=== PATIENT | male | born 1985 | race African-American/Black ===

== ENCOUNTER → 2020-07-29 | Outpatient (CLI) | payer BC ==
[2020-07-29 09:43] LABS: BASOPHILS % (AUTO) 0 % (0-10); EOSINOPHILS % (AUTO) 0 % (0-10); HEMATOCRIT 52 % (40-54); HEMOGLOBIN 18.2 G/DL (13.3-17.7); LYMPHOCYTES % (AUTO) 27 % (12-44); MEAN CORPUSCULAR HEMOGLOBIN 28 PG (25-34); MEAN CORPUSCULAR HGB CONC 28 G/DL (32-36); MEAN CORPUSCULAR VOLUME 79 FL (80-99); MEAN PLATELET VOLUME 9.3 FL (7.4-10.4); MONOCYTES % (AUTO) 12 % (0-12); NEUTROPHILS % (AUTO) 61 % (42-75); PLATELET COUNT 317 10^3/uL (130-400); WHITE BLOOD COUNT 10.3 10^3/uL (4.3-11.0)
[2020-07-29 09:44] LABS: LYMPHOCYTES # (AUTO) 2.8 X 10^3 (1.0-4.0); MONOCYTES # (AUTO) 1.2 X 10^3 (0.0-1.0); NEUTROPHILS # (AUTO) 6.2 X 10^3 (1.8-7.8)
[2020-07-29 09:58] LABS: ALANINE AMINOTRANSFERASE 16 U/L (0-55); ALKALINE PHOSPHATASE 119 U/L (40-136); AMYLASE 88 U/L (25-125); BILIRUBIN,TOTAL 0.8 MG/DL (0.1-1.0); BUN/CREATININE RATIO 22; CALCIUM 10.1 MG/DL (8.5-10.1); CARBON DIOXIDE 24 MMOL/L (21-32); CHLORIDE 91 MMOL/L (98-107); CREATININE SERUM 1.28 MG/DL (0.60-1.30); GFR ESTIMATED > 60; GLUCOSE 123 MG/DL (70-105); LIPASE 37 U/L (8-78); MAGNESIUM 2.3 MG/DL (1.6-2.4); POTASSIUM 3.3 MMOL/L (3.6-5.0); SODIUM 132 MMOL/L (135-145); TOTAL PROTEIN 9.3 GM/DL (6.4-8.2)
--- NOTE | 2020-07-29 10:10 | Diagnostic Imaging Report ---
Indication: Left lower quadrant abdominal pain Lung bases are clear. Bowel gas pattern is normal. There are no pathologic masses or calcifications. IMPRESSION: No acute abnormalities in the abdomen. Dictated by: Dictated on workstation # [id number]
== END ==
LOC: LAB FS 09:20
PROVIDERS: ATTEND Nurse Practitioner Family
DX: K59.00 Constipation, unspecified (principal); R10.32 Left lower quadrant pain; R11.2 Nausea with vomiting, unspecified; Z87.19 Personal history of other diseases of the digestive system
CPT/HCPCS: 36415; 74018; 80053; 82150; 83690; 83735; 85025

== ENCOUNTER 2021-04-19 13:25 | Emergency (ER) | payer BC ==
[~2021-04-19] VITALS: Ht 185 cm; Wt 72.0 kg
[2021-04-19] MEDS ORDERED: NS IV 1000 ML 1,000 ML IV STA ×3 (13:57→14:46)
[2021-04-19] MEDS ORDERED: ONDANSETRON 4 MG/2 ML (SDV) Z0FRAN IVP STA (13:57)
[2021-04-19 13:58] VITALS: BP 147/103
--- NOTE | 2021-04-19 14:03 | ED General ---
General Chief Complaint: Abdominal/GI Problems Stated Complaint: THROWING UP,DEHYDRATED Source of Information: Patient, Spouse History of Present Illness Date Seen by Provider: Apr 19, 2021 Time Seen by Provider: 13:35 Initial Comments 36-year-old male presenting with complaints of vomiting for the last 4 days and feeling dehydrated with muscle cramps. He has had multiple recurrent episodes of this in the past. He has seen specialist to try to work-up why he has recurrent episodes of vomiting and dehydration. He had EGD with biopsies on the . He has been sick and having issues since the . He previously had been able to go to the [facility] where they gave him IV fluids but today they said they did not have staff her room to be able to do that. He was feeling dizzy and lightheaded when he stands up. He denies fever or chills. He has had some loose stools. He denies any pain or burning with urination but has had decreased urine output. Timing/Duration: 4-5 Days Severity: Severe Modifying Factors: worse with Eating Associated Systoms: No Chest Pain; Cough (Mild intermittent); No Diaphoresis, No Fever/Chills, No Headaches; Loss of Appetite, Malaise, Nausea/Vomiting; No Rash, No Seizure, No Shortness of Air, No Syncope; Weakness (Generalized) Allergies and Home Medications Allergies Coded Allergies: No Known Drug Allergies (Unverified , 04/19/21) Patient Home Medication List Home Medication List Reviewed: Yes Review of Systems Review of Systems Constitutional: see HPI EENTM: no symptoms reported Respiratory: no symptoms reported Cardiovascular: no symptoms reported Gastrointestinal: see HPI, abdominal pain (Diffuse abdominal wall pain from vomiting for the last 4 days), diarrhea (Some loose stools), nausea, vomiting Genitourinary: decreased output; No dysuria Musculoskeletal: muscle pain (Generalized muscle cramps and body aches), muscle cramps (Generalized) Skin: No rash Psychiatric/Neurological: Weakness (Generalized) Past Bhczjxz-Wrqubj-Ufwixo Hx Patient Social History Tobacco Use?: Yes Tobacco type used: Cigarettes Smoking Status: Current Everyday Smoker Use of E-Cig and/or Vaping dev: No Substance use?: No Alcohol Use?: Yes Alcohol Frequency: Once in a while Past Medical History Surgery/Hospitalization HX: Recurrent episodes of nausea and vomiting Respiratory: No Cardiac: No Neurological: No Genitourinary: No Gastrointestinal: Yes (Recurrent episodes of nausea and vomiting) Musculoskeletal: No Endocrine: No HEENT: No Physical Exam Vital Signs Vital Signs - First Documented 04/19/21 13:58 Temp 36.8 Pulse 101 Resp 18 B/P (MAP) 147/103 (118) O2 Delivery Room Air Capillary Refill : Height, Weight, BMI Height: '" Weight: lbs. oz. kg; BMI Method: General Appearance: Mild Distress, Thin HEENT: PERRL/EOMI; No Moist Mucous Membranes (Slightly dry mucous membranes) Neck: Full Range of Motion, Normal Inspection, Non Tender, Supple Respiratory: Lungs Clear, Normal Breath Sounds, No Accessory Muscle Use, No Respiratory Distress Cardiovascular: Normal Peripheral Pulses, Tachycardia Gastrointestinal: Normal Bowel Sounds, No Pulsatile Mass, Soft, Tenderness (Diffuse mild tenderness to palpation) Rectal: Deferred Extremity: Normal Capillary Refill, No Pedal Edema, Other (Diffuse muscle cramping and pain) Neurologic/Psychiatric: Alert, Oriented x3, No Motor/Sensory Deficits, Normal Mood/Affect, blood tester fowl II-XII Norm as Tested Skin: Normal Color, Warm/Dry Progress/Results/Core Measures Suspected Sepsis SIRS Temperature: Pulse: Respiratory Rate: Laboratory Tests 04/19/21 14:18: White Blood Count 9.3 Blood Pressure / Mean: Laboratory Tests 04/19/21 14:18: Creatinine 1.43H, Platelet Count 325, Total Bilirubin 0.7 Results/Orders Lab Results Laboratory Tests Test 04/19/21 14:18 04/19/21 15:23 Range/Units White Blood Count 9.3 4.3-11.0 10^3/uL Red Blood Count 6.56 H 4.30-5.52 10^6/uL Hemoglobin 18.0 H 13.3-17.7 g/dL Hematocrit 53 40-54 % Mean Corpuscular Volume 80 80-99 fL Mean Corpuscular Hemoglobin 27 25-34 pg Mean Corpuscular Hemoglobin Concent 34 32-36 g/dL Red Cell Distribution Width 12.3 10.0-14.5 % Platelet Count 325 130-400 10^3/uL Mean Platelet Volume 9.5 9.0-12.2 fL Neutrophils (%) (Auto) 67 42-75 % Lymphocytes (%) (Auto) 21 12-44 % Monocytes (%) (Auto) 11 0-12 % Eosinophils (%) (Auto) 0 0-10 % Basophils (%) (Auto) 0 0-10 % Neutrophils # (Auto) 6.2 1.8-7.8 X 10^3 Lymphocytes # (Auto) 2.0 1.0-4.0 X 10^3 Monocytes # (Auto) 1.1 H 0.0-1.0 X 10^3 Eosinophils # (Auto) 0.0 0.0-0.3 10^3/uL Basophils # (Auto) 0.0 0.0-0.1 10^3/uL Sodium Level 129 L 135-145 MMOL/L Potassium Level 3.1 L 3.6-5.0 MMOL/L Chloride Level 89 L 98-107 MMOL/L Carbon Dioxide Level 21 21-32 MMOL/L Anion Gap 19 H 5-14 MMOL/L Blood Urea Nitrogen 38 H 7-18 MG/DL Creatinine 1.43 H 0.60-1.30 MG/DL Estimat Glomerular Filtration Rate 67 BUN/Creatinine Ratio 27 Glucose Level 128 H 70-105 MG/DL Calcium Level 9.7 8.5-10.1 MG/DL Corrected Calcium 8.5-10.1 MG/DL Magnesium Level 2.1 1.6-2.4 MG/DL Total Bilirubin 0.7 0.1-1.0 MG/DL Aspartate Amino Transf (AST/SGOT) 28 5-34 U/L Alanine Aminotransferase (ALT/SGPT) 16 0-55 U/L Alkaline Phosphatase 114 40-136 U/L Total Protein 9.2 H 6.4-8.2 GM/DL Albumin 4.7 H 3.2-4.5 GM/DL Lipase 38 8-78 U/L Urine Color YELLOW Urine Clarity CLEAR Urine pH 6.5 5-9 Urine Specific [place] 1.010 L 1.016-1.022 Urine Protein NEGATIVE NEGATIVE Urine Glucose (UA) NEGATIVE NEGATIVE Urine Ketones TRACE H NEGATIVE Urine Nitrite NEGATIVE NEGATIVE Urine Bilirubin NEGATIVE NEGATIVE Urine Urobilinogen 0.2 < = 1.0 MG/DL Urine Leukocyte Esterase NEGATIVE NEGATIVE Urine RBC (Auto) 1+ H NEGATIVE Urine RBC NONE /HPF Urine WBC 0-2 /HPF Urine Squamous Epithelial Cells RARE /HPF Urine Crystals NONE /LPF Urine Bacteria NEGATIVE /HPF Urine Casts NONE /LPF Urine Mucus NEGATIVE /LPF Urine Culture Indicated NO My Orders Orders - CECE DUKE MD Comprehensive Metabolic Panel (04/19/21 13:43) Lipase (04/19/21 13:43) Ua Culture If Indicated (04/19/21 13:43) Ed Iv/Invasive Line Start (04/19/21 13:43) Cbc With Automated Diff (04/19/21 13:43) Ns Iv 1000 Ml (Sodium Chloride 0.9%) (04/19/21 13:57) Ondansetron Injection (Zofran Injectio (04/19/21 13:57) Magnesium (04/19/21 13:57) Ns Iv 1000 Ml (Sodium Chloride 0.9%) (04/19/21 14:33) Potassium Cl 10meq/50ml Ivpb (Kcl 10 Meq (04/19/21 14:46) Ns Iv 1000 Ml (Sodium Chloride 0.9%) (04/19/21 14:46) Vital Signs/I&O 04/19/21 13:58 Temp 36.8 Pulse 101 Resp 18 B/P (MAP) 147/103 (118) O2 Delivery Room Air Capillary Refill : Progress Note #1: Progress Note Obtain basic labs to look at electrolytes and blood count as well as renal and hepatic function. Give IV fluids for hydration, Zofran for nausea. Try p.o. intake after the Zofran. Try to obtain a urine specimen to help look at hydration status. Progress Note #2: Progress Note Labs appear stable without acute significant abnormality other than he does have potassium of 3.1, creatinine of 1.43. He was able to urinate after almost 2 L of fluid had infused. With that his potassium at 3.1 he will get 10 mEq IV along with his IV fluids. He was given a total of 3 L of normal saline for hydration. He was also tolerating oral intake. Counseled on high potassium intake in diet. Advised to follow-up and return as needed for worsening symptoms Departure Impression Primary Impression: Intractable nausea and vomiting Additional Impressions: Dehydration Cramps, muscle, general Hypokalemia Disposition: 01 HOME, SELF-CARE Condition: Stable Departure-Patient Inst. Decision time for Depature: 15:34 Referrals: DIVINA BREEN APRN (PCP/Family) Primary Care Physician Patient Instructions: Nausea and Vomiting, Adult ED, Muscle Spasm ED, Dehydration, Adult ED, High Potassium Diet, Hypokalemia (DC) Add. Discharge Instructions: Try to push fluids and stay well hydrated. Increase potassium intake to help with spasms and cramping. Continue to follow up with your doctors and providers about your recurrent episodes of vomiting and dehydration. All discharge instructions reviewed with patient and/or family. Voiced und erstanding. Work/School Note: Work Release Form Date Seen in the Emergency Department: Apr 19, 2021 Return to Work: Apr 21, 2021 Restrictions: Return-No Vomiting(24hrs) Other Restrictions Listed Below: Activity as tolerated CECE DUKE MD Apr 19, 2021 14:03
[2021-04-19 14:27] LABS: WHITE BLOOD COUNT 9.3 10^3/uL (4.3-11.0)
[2021-04-19 14:28] LABS: BASOPHILS % (AUTO) 0 % (0-10); EOSINOPHILS % (AUTO) 0 % (0-10); HEMATOCRIT 53 % (40-54); LYMPHOCYTES % (AUTO) 21 % (12-44); MEAN CORPUSCULAR HEMOGLOBIN 27 pg (25-34); MEAN CORPUSCULAR HGB CONC 34 g/dL (32-36); MEAN CORPUSCULAR VOLUME 80 fL (80-99); MEAN PLATELET VOLUME 9.5 fL (9.0-12.2); MONOCYTES # (AUTO) 1.1 X 10^3 (0.0-1.0); MONOCYTES % (AUTO) 11 % (0-12); NEUTROPHILS # (AUTO) 6.2 X 10^3 (1.8-7.8); NEUTROPHILS % (AUTO) 67 % (42-75); PLATELET COUNT 325 10^3/uL (130-400)
[2021-04-19 14:42] LABS: BUN/CREATININE RATIO 27; CARBON DIOXIDE 21 MMOL/L (21-32); CHLORIDE 89 MMOL/L (98-107); CREATININE SERUM 1.43 MG/DL (0.60-1.30); GFR ESTIMATED 67; POTASSIUM 3.1 MMOL/L (3.6-5.0); SODIUM 129 MMOL/L (135-145)
[2021-04-19 14:43] LABS: ALANINE AMINOTRANSFERASE 16 U/L (0-55); ALBUMIN 4.7 GM/DL (3.2-4.5); ALKALINE PHOSPHATASE 114 U/L (40-136); BILIRUBIN,TOTAL 0.7 MG/DL (0.1-1.0); CALCIUM 9.7 MG/DL (8.5-10.1); GLUCOSE 128 MG/DL (70-105); LIPASE 38 U/L (8-78); MAGNESIUM 2.1 MG/DL (1.6-2.4); TOTAL PROTEIN 9.2 GM/DL (6.4-8.2)
[2021-04-19] MEDS ORDERED: POTASSIUM CL 10MEQ/50ML IVPB 50 ML IV STA (14:46)
[2021-04-19 15:59] LABS: CLARITY,URINE CLEAR; COLOR,URINE YELLOW; NITRITE,URINE NEGATIVE (NEGATIVE); PH,URINE 6.5 (5-9); PROTEIN,URINE NEGATIVE (NEGATIVE)
[2021-04-19 16:00] LABS: BACTERIA,URINE NEGATIVE /HPF; BILIRUBIN,URINE NEGATIVE (NEGATIVE); GLUCOSE, URINE (UA) NEGATIVE (NEGATIVE); KETONES,URINE TRACE (NEGATIVE); LEUKOCYTE ESTERASE ,URINE NEGATIVE (NEGATIVE); SQUAMOUS EPITHELIAL CELL,UR RARE /HPF; WBC,URINE 0-2 /HPF
== END 2021-04-19 16:10 | disposition home or self-care (01) ==
LOC: EDUNIT# 13:25 → ER FS 13:27
DX: R11.2 Nausea with vomiting, unspecified (principal); E86.0 Dehydration; E87.6 Hypokalemia; R25.2 Cramp and spasm; F17.210 Nicotine dependence, cigarettes, uncomplicated
CPT/HCPCS: 36415; 80053; 81000; 83690; 83735; 85025; 96374

== ENCOUNTER 2021-07-21 11:26 | Emergency (ER) | payer BC ==
[~2021-07-21] VITALS: Ht 185.4 cm; Wt 77.0 kg
--- NOTE | 2021-07-21 11:37 | ED GI ---
General Stated Complaint: VOMITING History of Present Illness Date Seen by Provider: Jul 21, 2021 Time Seen by Provider: 11:32 Initial Comments 36-year-old male presents with nausea vomiting and diarrhea. Patient reports that the vomiting started last night and is vomited "buckets and buckets" patient family had similar illness couple days ago in which he also have a got better than it return patient states he is got some fevers and chills. Patient has had a prior episodes of the similar and has seen GI specialist and was told he had some inflammation around his bowel but nothing else. Patient complains of some diffuse abdominal pain that started after the vomiting. Allergies and Home Medications Allergies Coded Allergies: No Known Drug Allergies (Unverified , 04/19/21) Patient Home Medication List Home Medication List Reviewed: Yes Review of Systems Review of Systems Constitutional: chills, fever, malaise Respiratory: Denies Cough, Denies Shortness of Air Cardiovascular: No Symptoms Reported Gastrointestinal: Abdominal Pain, Diarrhea, Nausea, Vomiting Musculoskeletal: no symptoms reported Skin: no symptoms reported Psychiatric/Neurological: No Symptoms Reported Endocrine: No Symptoms Reported Past Ylsksku-Oooyre-Lwcqfz Hx Past Medical History Surgery/Hospitalization HX: Recurrent episodes of nausea and vomiting Respiratory: No Cardiac: No Neurological: No Genitourinary: No Gastrointestinal: Yes (Recurrent episodes of nausea and vomiting) Musculoskeletal: No Endocrine: No HEENT: No Physical Exam Vital Signs Vital Signs - First Documented 07/21/21 07/21/21 11:33 11:38 Temp 36.3 Pulse 62 Resp 20 B/P (MAP) 142/88 (106) Pulse Ox 99 O2 Delivery Room Air Capillary Refill : Height/Weight/BMI Height: '" Weight: lbs. oz. kg; 21.00 BMI Method: General Appearance: mild distress Respiratory: lungs clear, normal breath sounds Cardiovascular: normal peripheral pulses, regular rate, rhythm Gastrointestinal: soft, tenderness (Diffuse) Extremities: non-tender Neurologic/Psychiatric: alert, normal mood/affect, oriented x 3 Skin: normal color, warm/dry Progress/Results/Core Measures Results/Orders Lab Results Laboratory Tests Test 07/21/21 11:38 07/21/21 12:32 Range/Units White Blood Count 10.5 4.3-11.0 10^3/uL Red Blood Count 5.90 H 4.30-5.52 10^6/uL Hemoglobin 16.2 13.3-17.7 g/dL Hematocrit 49 40-54 % Mean Corpuscular Volume 83 80-99 fL Mean Corpuscular Hemoglobin 28 25-34 pg Mean Corpuscular Hemoglobin Concent 33 32-36 g/dL Red Cell Distribution Width 13.7 10.0-14.5 % Platelet Count 336 130-400 10^3/uL Mean Platelet Volume 9.2 9.0-12.2 fL Immature Granulocyte % (Auto) 0 % Neutrophils (%) (Auto) 91 H 42-75 % Lymphocytes (%) (Auto) 5 L 12-44 % Monocytes (%) (Auto) 3 0-12 % Eosinophils (%) (Auto) 0 0-10 % Basophils (%) (Auto) 0 0-10 % Neutrophils # (Auto) 9.6 H 1.8-7.8 10^3/uL Lymphocytes # (Auto) 0.6 L 1.0-4.0 10^3/uL Monocytes # (Auto) 0.3 0.0-1.0 10^3/uL Eosinophils # (Auto) 0.0 0.0-0.3 10^3/uL Basophils # (Auto) 0.0 0.0-0.1 10^3/uL Immature Granulocyte # (Auto) 0.0 0.0-0.1 10^3/uL Neutrophils % (Manual) 88 % Lymphocytes % (Manual) 5 % Monocytes % (Manual) 3 % Eosinophils % (Manual) 1 % Basophils % (Manual) 0 % Band Neutrophils 3 % Sodium Level 146 H 135-145 MMOL/L Potassium Level 3.4 L 3.6-5.0 MMOL/L Chloride Level 104 98-107 MMOL/L Carbon Dioxide Level 24 21-32 MMOL/L Anion Gap 18 H 5-14 MMOL/L Blood Urea Nitrogen 18 7-18 MG/DL Creatinine 1.33 H 0.60-1.30 MG/DL Estimat Glomerular Filtration Rate 71 BUN/Creatinine Ratio 14 Glucose Level 165 H 70-105 MG/DL Calcium Level 10.4 H 8.5-10.1 MG/DL Corrected Calcium 8.5-10.1 MG/DL Total Bilirubin 0.4 0.1-1.0 MG/DL Aspartate Amino Transf (AST/SGOT) 22 5-34 U/L Alanine Aminotransferase (ALT/SGPT) 16 0-55 U/L Alkaline Phosphatase 122 40-136 U/L C-Reactive Protein 1.53 H <0.50 MG/DL Total Protein 9.1 H 6.4-8.2 GM/DL Albumin 5.3 H 3.2-4.5 GM/DL Lipase 13 8-78 U/L Urine Color YELLOW Urine Clarity CLOUDY Urine pH 7.0 5-9 Urine Specific [place] 1.020 1.016-1.022 Urine Protein 2+ H NEGATIVE Urine Glucose (UA) NEGATIVE NEGATIVE Urine Ketones 3+ H NEGATIVE Urine Nitrite NEGATIVE NEGATIVE Urine Bilirubin 2+ H NEGATIVE Urine Urobilinogen 0.2 < = 1.0 MG/DL Urine Leukocyte Esterase NEGATIVE NEGATIVE Urine RBC (Auto) NEGATIVE NEGATIVE Urine RBC NONE /HPF Urine WBC 5-10 H /HPF Urine Squamous Epithelial Cells NONE /HPF Urine Crystals NONE /LPF Urine Bacteria FEW H /HPF Urine Casts NONE /LPF Urine Mucus LARGE H /LPF Urine Culture Indicated YES Urine Opiates Screen NEGATIVE NEGATIVE Urine Oxycodone Screen NEGATIVE NEGATIVE Urine Methadone Screen NEGATIVE NEGATIVE Urine Propoxyphene Screen NEGATIVE NEGATIVE Urine Barbiturates Screen NEGATIVE NEGATIVE Ur Tricyclic Antidepressants Screen NEGATIVE NEGATIVE Urine Phencyclidine Screen NEGATIVE NEGATIVE Urine Amphetamines Screen NEGATIVE NEGATIVE Urine Methamphetamines Screen NEGATIVE NEGATIVE Urine Benzodiazepines Screen NEGATIVE NEGATIVE Urine Cocaine Screen NEGATIVE NEGATIVE Urine Cannabinoids Screen POSITIVE H NEGATIVE My Orders Orders - NASH,POOL L DO Cbc With Automated Diff (07/21/21 11:38) Comprehensive Metabolic Panel (07/21/21 11:38) Drug Screen Stat (Urine) (07/21/21 11:38) Lipase (07/21/21 11:38) Ua Culture If Indicated (07/21/21 11:38) Crp Fs (07/21/21 11:38) Ondansetron Injection (Zofran Injectio (07/21/21 11:45) Famotidine Tablet (Pepcid Tablet) (07/21/21 11:38) Lactated Ringers (Lr 1000 Ml Iv Solution (07/21/21 11:38) Abdomen Flat & Upright/Decub (07/21/21 11:39) Manual Differential (07/21/21 11:38) Metoclopramide Injection (Reglan Injecti (07/21/21 12:38) Lactated Ringers (Lr 1000 Ml Iv Solution (07/21/21 12:38) Diphenhydramine Injection (Benadryl Inje (07/21/21 12:38) Urine Culture (07/21/21 12:32) Medications Given in ED Current Medications Medications Dose Ordered Sig/Daljit Route Start Time Stop Time Status Last Admin Dose Admin Ondansetron HCl 4 mg ONCE ONCE IVP 07/21/21 11:45 07/21/21 11:46 DC 07/21/21 11:47 4 MG Vital Signs/I&O 07/21/21 07/21/21 07/21/21 11:33 11:38 13:15 Temp 36.3 36.3 Pulse 62 66 57 Resp 20 20 B/P (MAP) 142/88 (106) 142/88 113/56 Pulse Ox 99 99 O2 Delivery Room Air Room Air Room Air Progress Progress Note : Progress Note Patient feeling much better following treatment here in the ER. Patient symptoms likely result of an enteritis likely a viral enteritis based on family members having similar symptoms a couple days ago. Did recommend he follow-up with his primary care provider as needed for recheck on with his GI specialist if he feels as needed. Patient is stable and discharged home. Patient was o ffered Zofran but declined. Diagnostic Imaging Diagonstic Imaging: Xray Plain Films/CT/US/NM/MRI: abdomen Comments ABDOMEN FLAT & UPRIGHT/DECUB INDICATION: Nausea, vomiting, and diarrhea COMPARISON: 07/29/2020 FINDINGS: Supine and upright views the abdomen demonstrate nonobstructive small bowel gas pattern. Mild amount of air and stool are seen scattered throughout the colon. No abnormal air-fluid levels or large collection of free intraperitoneal air is seen. No abnormal extraosseous calcifications or radiopaque foreign bodies are identified. Bony structures are age-appropriate. IMPRESSION: 1. Nonobstructive small bowel gas pattern. Reviewed: Reviewed by Me, Reviewed/Discussed Departure Impression Primary Impression: Enteritis Disposition: HOME, SELF-CARE Condition: Stable Departure-Patient Inst. Referrals: DIVINA BREEN APRN (PCP) Primary Care Physician [facility] (Family) Primary Care Physician Patient Instructions: Viral Gastroenteritis, Adult (DC), Colitis (DC) Add. Discharge Instructions: Clear liquid diet and advance as tolerated Follow-up with your primary care provider as needed for recheck of your symptoms POOL NASH DO Jul 21, 2021 11:37
[2021-07-21] MEDS ORDERED: FAMOTIDINE 20 MG (PEPCID) TABLET PO STA (11:38)
[2021-07-21] MEDS ORDERED: LACTATED RINGERS 1,000 ML IV STA ×2 (11:38→12:38)
[2021-07-21 11:44] LABS: BASOPHILS % (AUTO) 0 % (0-10); EOSINOPHILS % (AUTO) 0 % (0-10); HEMATOCRIT 49 % (40-54); HEMOGLOBIN 16.2 g/dL (13.3-17.7); LYMPHOCYTES # (AUTO) 0.6 10^3/uL (1.0-4.0); LYMPHOCYTES % (AUTO) 5 % (12-44); MEAN CORPUSCULAR HEMOGLOBIN 28 pg (25-34); MEAN CORPUSCULAR HGB CONC 33 g/dL (32-36); MEAN CORPUSCULAR VOLUME 83 fL (80-99); MEAN PLATELET VOLUME 9.2 fL (9.0-12.2); MONOCYTES # (AUTO) 0.3 10^3/uL (0.0-1.0); MONOCYTES % (AUTO) 3 % (0-12); NEUTROPHILS # (AUTO) 9.6 10^3/uL (1.8-7.8); NEUTROPHILS % (AUTO) 91 % (42-75); PLATELET COUNT 336 10^3/uL (130-400); WHITE BLOOD COUNT 10.5 10^3/uL (4.3-11.0)
[2021-07-21] MEDS ORDERED: ONDANSETRON 4 MG/2 ML (SDV) Z0FRAN IVP ONE (11:45)
[2021-07-21 12:03] LABS: CARBON DIOXIDE 24 MMOL/L (21-32); CHLORIDE 104 MMOL/L (98-107); POTASSIUM 3.4 MMOL/L (3.6-5.0); SODIUM 146 MMOL/L (135-145)
[2021-07-21 12:04] LABS: ALANINE AMINOTRANSFERASE 16 U/L (0-55); ALBUMIN 5.3 GM/DL (3.2-4.5); ALKALINE PHOSPHATASE 122 U/L (40-136); BILIRUBIN,TOTAL 0.4 MG/DL (0.1-1.0); BUN/CREATININE RATIO 14; CALCIUM 10.4 MG/DL (8.5-10.1); CREATININE SERUM 1.33 MG/DL (0.60-1.30); GFR ESTIMATED 71; GLUCOSE 165 MG/DL (70-105); LIPASE 13 U/L (8-78); TOTAL PROTEIN 9.1 GM/DL (6.4-8.2)
[2021-07-21 12:14] LABS: NEUTROPHILS % (MANUAL) 88 %
[2021-07-21 12:15] LABS: BAND NEUTROPHILS 3 %; BASOPHILS % (MANUAL) 0 %; EOSINOPHILS % (MANUAL) 1 %; LYMPHOCYTES % (MANUAL) 5 %; MONOCYTES % (MANUAL) 3 %
--- NOTE | 2021-07-21 12:17 | Diagnostic Imaging Report ---
INDICATION: Nausea, vomiting, and diarrhea COMPARISON: 07/29/2020 FINDINGS: Supine and upright views the abdomen demonstrate nonobstructive small bowel gas pattern. Mild amount of air and stool are seen scattered throughout the colon. No abnormal air-fluid levels or large collection of free intraperitoneal air is seen. No abnormal extraosseous calcifications or radiopaque foreign bodies are identified. Bony structures are age-appropriate. IMPRESSION: 1. Nonobstructive small bowel gas pattern. Dictated by: Dictated on workstation # [id number]
[2021-07-21] MEDS ORDERED: METOCLOPRAMIDE INJ 10 MG/2 ML (REGLAN) IVP STA (12:38)
[2021-07-21] MEDS ORDERED: diphenhydrAMINE 50 MG/ML INJ (BENADRYL) IV STA (12:38)
[2021-07-21 12:43] LABS: CLARITY,URINE CLOUDY; COLOR,URINE YELLOW; GLUCOSE, URINE (UA) NEGATIVE (NEGATIVE); KETONES,URINE 3+ (NEGATIVE); LEUKOCYTE ESTERASE ,URINE NEGATIVE (NEGATIVE); NITRITE,URINE NEGATIVE (NEGATIVE); PROTEIN,URINE 2+ (NEGATIVE)
[2021-07-21 13:14] LABS: BACTERIA,URINE FEW /HPF; BILIRUBIN,URINE 2+ (NEGATIVE)
[2021-07-21 13:17] LABS: AMPHETAMINE SCREEN, URINE NEGATIVE (NEGATIVE); BARBITURATE SCREEN URINE NEGATIVE (NEGATIVE); BENZODIAZEPINES SCREEN URINE NEGATIVE (NEGATIVE); CANNABINOID SCREEN, URINE POSITIVE (NEGATIVE); COCAINE SCREEN URINE NEGATIVE (NEGATIVE); METHADONE STAT NEGATIVE (NEGATIVE); METHAMPHETAMINE SCREEN URINE S NEGATIVE (NEGATIVE); OPIATE SCREEN URINE NEGATIVE (NEGATIVE); OXYCODONE STAT NEGATIVE (NEGATIVE); PROPOXYPHENE STAT NEGATIVE (NEGATIVE); TRICYCLIC ANTIDEPRESSANTS SCRE NEGATIVE (NEGATIVE)
[2021-07-21 13:57] VITALS: BP 113/64
== END 2021-07-21 14:02 | disposition home or self-care (01) ==
LOC: EDUNIT# 11:26 → ER FS 11:28
DX: K52.9 Noninfective gastroenteritis and colitis, unspecified (principal)
CPT/HCPCS: 36415; 74019; 80053; 80306; 81000; 83690; 85007; 85027; 86141; 87088